=== PATIENT | male | born 1955 | race Caucasian/White ===

== ENCOUNTER 2018-07-18 15:38 | Emergency (ER) | payer OTHER ==
[2018-07-18 16:09] LABS: ADD MAN DIFF? NO
[2018-07-18 16:12] LABS: BASOPHILS % 0.4 % (0.0-2.0); EOSINOPHILS # 0.1 10^3/ul (0.0-0.5); EOSINOPHILS % 1.6 % (0.0-7.0); HEMATOCRIT 41.6 % (42.0-52.0); HEMOGLOBIN 14.2 g/dl (14.0-18.0); LYMPHOCYTES # 0.7 10^3/ul (0.8-2.9); LYMPHOCYTES % 14.7 % (15.0-51.0); MEAN CORPUSCULAR HEMOGLOBIN 29.7 pg (29.0-33.0); MEAN CORPUSCULAR HGB CONC 34.1 g/dl (32.0-37.0); MEAN PLATELET VOLUME 9.3 fl (7.4-10.4); MONOCYTE # 0.5 10^3/ul (0.3-0.9); MONOCYTES % 9.7 % (0.0-11.0); NEUTROPHIL # 3.7 10^3/ul (1.6-7.5); NEUTROPHILS % 73.4 % (39.0-77.0); PLATELET COUNT 196 10^3/UL (140-415); RED BLOOD COUNT 4.78 10^6/ul (4.70-6.10)
[2018-07-18] MEDS: SOD CHLORIDE 0.9% 1,000 ML IV (16:12)
[2018-07-18] MEDS: KETOROLAC 15 MG INJ IV (16:12)
[2018-07-18 16:30] LABS: ANION GAP 11 (5-13); BLOOD UREA NITROGEN 16 mg/dl (7-20); CALCIUM 9.2 mg/dl (8.4-10.2); CARBON DIOXIDE 24 mmol/L (21-31); CHLORIDE 102 mmol/L (97-110); CREATININE 0.73 mg/dl (0.61-1.24); Estimated GFR > 60 mL/min (>60); GLUCOSE 115 mg/dl (70-220); POTASSIUM 3.9 mmol/L (3.5-5.1); SODIUM 137 mmol/L (135-144)
== END 2018-07-18 18:05 | disposition home or self-care (01) ==
LOC: E/R 15:38
DX: G44.209 Tension-type headache, unspecified, not intractable (principal); R19.7 Diarrhea, unspecified; Z79.82 Long term (current) use of aspirin
CPT/HCPCS: 80048; 85025; 96361; 96374; 99284-25